=== PATIENT | male | born 1980 | race Caucasian/White ===

== ENCOUNTER 2019-06-01 16:49 | Emergency (ER) | payer BC, SELFPAY ==
[2019-06-01 17:18] VITALS: BP 139/85; PULSE 73; RESP 16; TEMP 36.9; O2SAT 95; BMI 42.0
--- NOTE | 2019-06-01 17:52 | ED_ITS ---
Entered by Diana Rich, acting as scribe for Jun 01, 2019 16:49 HPI - Chest Pain General: Chief Complaint: Chest Pain Stated Complaint: h/a palpatations Time Seen by Provider: 06/01/19 17:53 Source: patient Mode of arrival: ambulatory Limitations: no limitations History of Present Illness: HPI narrative: 39 yo male presents with palpatations. pt states this started this morning. pt has had a headache. pt denies any other symptoms at this time. Patient states that he checked his blood pressure at home and it was in the 150s. He denies having any history of high blood pressure. Blood pressures here been normal. He has had a mild headache. He denies any vomiting or diarrhea. MD complaint: other (headache, palpatation ) Onset (ago): day(s) (today) Timing of current episode: increasing and still present Onset: during rest Pain location: substernal Pain radiation: none Severity: mild Quality: heaviness Relieving factors: nothing Exacerbating factors: other (headache) Associated symptoms: Reports palpitations and other (headache); Deny abdominal pain, dyspnea, fever(s), nausea or vomiting Treatment prior to arrival: none Review of Systems Const: Denies: fever, chills, body aches or change in appetite Eyes: Denies: blurry vision or eye discomfort ENMT: Denies: throat pain or dental pain Card: Reports: palpitations Resp: Denies: shortness of breath GI: Denies: abdominal pain, nausea, vomiting or diarrhea : Denies: painful urination Musc: Denies: neck pain or back pain Skin/Breast: Denies: rash Psych: Denies: depression Gualberto/Lymph: Denies: easy bruising All/Imm: Denies: hives PFS ED PFSH: Social History Smoking and tobacco status: current every day smoker Alcohol intake: never Physical Exam Const: COMMON NORMALS: no apparent distress, oriented x3 and healthy appearing HENMT: COMMON NORMALS: normocephalic and head/scalp atraumatic HEAD & SCALP: normocephalic and atraumatic Eye: COMMON NORMALS: PERRL and EOMs intact bilaterally PUPIL: Yes PERRL Neck/C-Spine: COMMON NORMALS: full ROM and supple Chest: COMMONS NORMALS: inspection of chest normal and palpation of chest normal Resp: COMMON NORMALS: normal respiratory effort, no retractions, no use of accessory muscles and clear to auscultation bilaterally AUSCULTATION: clear to auscultation bilaterally Cardio: COMMON NORMALS: regular rate, regular rhythm and no murmurs RATE: regular rate RHYTHM: regular rhythm GI: COMMON NORMALS: normal to inspection, nondistended, normoactive bowel sounds, soft to palpation, non-tender and no masses PALPATION: Yes soft Extremity: COMMON NORMALS: normal to inspection and full ROM Neuro: COMMON NORMALS: oriented x3, moves all extremities and no focal motor deficits Psych: COMMON NORMALS: mental status grossly normal, thought process normal and cooperative THOUGHT PROCESS: normal thought process Skin: COMMON NORMALS: no rashes or lesions noted and no wounds GENERAL SKIN EXAM: no rashes or lesions noted Course Vital Signs: Vital signs: Vital Signs Temperature 98.4 F 06/01/19 17:18 Pulse Rate 63 06/01/19 19:03 Respiratory Rate 16 06/01/19 17:18 Blood Pressure 130/89 06/01/19 19:03 Pulse Oximetry 94 06/01/19 19:03 MDM - Chest Pain MDM Narrative: Medical decision making narrative: Patient presents here with high blood pressure and a headache. Patient has no signs of subarachnoid hemorrhage. Patient's lab work here is normal. Patient's blood pressure is been normal here. I did inform him to take a log over the next week and follow- up with his primary care doctor. Patient is stable for discharge and return if worsening. Lab Data: Labs: Lab Results 06/01/19 06/01/19 06/01/19 Range/Units 18:12 18:12 18:12 WBC 11.5 H (4.0-10.0) 10^3/ uL RBC 5.49 H (4.1-5.3) 10^6/u L Hgb 17.2 H (11.7-16.6) g/dL Hct 53.4 H (42.0-52.0) % MCV 97.3 H (80-94) fL MCH 31.3 (28.0-34.0) pg MCHC 32.2 (30.0-36.0) g/dL RDW 13.6 (12.1-15.1) % Plt Count 259 (130-400) 10^3/c mm MPV 9.7 (7.4-10.4) fL Neut % (Auto) 54.5 % Lymph % (Auto) 32.0 % Beckham % (Auto) 9.8 % Eos % (Auto) 2.6 % Baso % (Auto) 0.5 % Neut # (Auto) 6.3 (1.8-7.7) 10^3/u L Lymph # (Auto) 3.7 (0.8-4.8) 10^3/u L Beckham # (Auto) 1.1 H (0.2-0.9) 10^3/u L Eos # (Auto) 0.3 (0.0-0.8) 10^3/u L Baso # (Auto) 0.1 (0.0-0.1) 10^3/u L Nucleated RBC % (a uto) 0 % Nucleated RBCs # 0.0 /100WBC Sodium 140 (136-145) mmol/L Potassium 3.9 (3.5-5.1) mmol/L Chloride 104 (98-107) mmol/L Carbon Dioxide 26 (22-29) mmol/L Anion Gap 13.9 (5-19) BUN 10 (6-20) mg/dL Creatinine 0.6 L (0.7-1.2) mg/dL GFR Calculation 150.8 H (90-130) mL/min Glucose 92 (65-115) mg/dL Calculated Osmolal ity 286 (285-295) mOsm/k g Calcium 9.5 (8.5-10.5) mg/dL Total Bilirubin 0.2 (0.15-1.2) mg/dL AST 22 (0-40) U/L ALT 38 (0-41) U/L Alkaline Phosphata se 74 (40-130) IU/L Troponin T Baselin e 6 (0-15) ng/mL Total Protein 6.7 (6.6-8.7) g/dL Albumin 3.9 (3.5-5.2) g/dL Globulin 2.8 (1.3-4.6) g/dL Imaging Data^: CXR: Attestation: I personally reviewed and interpreted this imaging study as follows: My impression: no acute abnormality EKG Data^: EKG 1: Attestation: I personally reviewed and interpreted this EKG as follows: EKG interpretation date: 06/01/19 EKG interpretation time: 18:00 Interpretation: nsr hr [address] or t wave abnormalities qrs 106 qtc 372 Discharge Plan Discharge Patient Disposition: Home, Self-Care Clinical Impression: Headache Hypertension Qualifiers: Hypertension type: unspecified Qualified Code(s): I10 - Essential (primary) hypertension Condition: Stable Prescriptions: No Action venlafaxine [Effexor XR] 75 mg capsule,extended release 24hr 75 mg PO DAILY RF: 0 Discharge Orders: Discharge Order (Routine); Ordered 06/01/19 Ordered By: Pepe Schultz Referrals: Marquis Sepulveda MD [Primary Care Provider] - Discharge Diet: Advance as tolerated Discharge Activity: Resume usual activity Patient Instructions: Hypertension (ED) Discharge Date/Time: 06/01/19 19:11 Coding Level of Care Code ED Social [employer] for Chg Fwd Exam Comprehensive The documentation recorded by the Hilario spivey Bridget Annette, accurately reflects the service I personally performed and the decisions made by Marion cline Korby, MD Jun 01, 2019 16:49
--- NOTE | 2019-06-01 17:56 | XR_ITS ---
WS: [id number] Portable AP upright chest, 06/01/2019 Clinical Data: cp Comparison: None. Findings: No nodules, masses or effusions are seen. The heart is normal. The pulmonary vascularity is not increased. No pneumonia or pneumothorax is seen. XR/XR chest 1V portable [id number] Impression: Negative chest.
[2019-06-01 18:24] LABS: Basophils # 0.1 10^3/uL (0.0-0.1); Basophils % 0.5 %; Eosinophils # 0.3 10^3/uL (0.0-0.8); Eosinophils % 2.6 %; Hematocrit 53.4 % (42.0-52.0); Hemoglobin 17.2 g/dL (11.7-16.6); Lymphocytes # 3.7 10^3/uL (0.8-4.8); Mean Corpuscular HGB Conc 32.2 g/dL (30.0-36.0); Mean Corpuscular Hemoglobin 31.3 pg (28.0-34.0); Mean Corpuscular Volume 97.3 fL (80-94); Mean Platelet Volume 9.7 fL (7.4-10.4); Monocytes # 1.1 10^3/uL (0.2-0.9); Monocytes % 9.8 %; Neutrophils # 6.3 10^3/uL (1.8-7.7); Neutrophils % 54.5 %; Nucleated Red Blood Cells % 0 %; Platelet Count 259 10^3/cmm (130-400); Red Blood Count 5.49 10^6/uL (4.1-5.3); Red Cell Distribution Width 13.6 % (12.1-15.1); White Blood Count 11.5 10^3/uL (4.0-10.0)
[2019-06-01] MEDS: ketorolac 30 mg/mL INJ 15 MG IVP (18:35)
[2019-06-01 18:41] LABS: Alanine Aminotransferase 38 U/L (0-41); Albumin Level 3.9 g/dL (3.5-5.2); Alkaline Phosphatase 74 IU/L (40-130); Anion Gap 13.9 (5-19); Aspartate Amino Transferase 22 U/L (0-40); Blood Urea Nitrogen 10 mg/dL (6-20); Calcium 9.5 mg/dL (8.5-10.5); Carbon Dioxide 26 mmol/L (22-29); Chloride 104 mmol/L (98-107); Globulin 2.8 g/dL (1.3-4.6); Glomerular Filtration Rate 150.8 mL/min (90-130); Glucose 92 mg/dL (65-115); Osmolality Calculated 286 mOsm/kg (285-295); Potassium 3.9 mmol/L (3.5-5.1); Sodium 140 mmol/L (136-145); Total Bilirubin 0.2 mg/dL (0.15-1.2); Total Protein 6.7 g/dL (6.6-8.7)
[2019-06-01 18:43] LABS: Troponin(5th) Baseline 6 ng/mL (0-15)
[2019-06-01 19:03] VITALS: BP 130/89; PULSE 63; O2SAT 94
[2019-06-01 19:11] VITALS: BP 133/89; PULSE 78; O2SAT 78
--- NOTE | 2019-06-01 23:56 | ECG_ITS ---
Measurements Intervals [place] Rate: 70 P: 34 VT: 144 QRS: 34 QRSD: 106 T: 61 QT: 351 QTc: 380 SINUS RHYTHM INCOMPLETE RIGHT BUNDLE BRANCH BLOCK [90+ ms QRS DURATION, TERMINAL R IN V1/V2, 40+ ms S IN I/aVL/V4/V5/V6] No previous ECG available for comparison Electronically Signed On 06-01-2019 19:37:59 CDT by Steven Donaldson M.D. [email or web address]
== END 2019-06-01 19:11 | disposition home or self-care (01) ==
PROVIDERS: Emergency Provider Emergency Medicine; PCP Orthopaedic Surgery
DX: R51 Headache (principal); I10 Essential (primary) hypertension; F17.200 Nicotine dependence, unspecified, uncomplicated
CPT/HCPCS: 12345; 36415; 71045; 80053; 84484; 85025; 93005; 96374; 96375; 99282; 99284; J1885